=== PATIENT | female | born 1955 | race Caucasian/White ===

== ENCOUNTER 2016-09-04 10:32 | Emergency (ER) | payer OTHER ==
[2016-09-04] MEDS ORDERED: LORazepam TAB(*) 1 MG PO ONE (12:23)
[2016-09-04 12:40] LABS: Hematocrit 42 % (35-47); Hemoglobin 14.3 g/dl (12.0-16.0); Mean Corpuscular HGB Conc 34 g/dl (31-36); Mean Corpuscular Hemoglobin 36 pg (27-31); Mean Corpuscular Volume 106 fL (80-97); Mean Platelet Volume 9 um3 (7.4-10.4); Red Blood Count 4.01 10^6/ul (4.0-5.4); Red Cell Distribution Width 14 % (10.5-15); White Blood Count 6.3 10^3/ul (3.5-10.8)
[2016-09-04 12:48] LABS: Comments Flag Yes
[2016-09-04 12:49] LABS: Add Diff/Slide Review? Slide Review Added
[2016-09-04 12:50] LABS: ALT 90 U/L (7-52); AST 178 U/L (13-39); Albumin 4.2 g/dL (3.2-5.2); Alkaline Phosphatase 126 U/L (34-104); Anion Gap 15 mmol/L (2-11); BUN/Creatinine Ratio 7.9 (8-20); Blood Urea Nitrogen 5 mg/dL (6-24); CO2 Carbon Dioxide 18 mmol/L (22-32); Calcium 9.5 mg/dL (8.6-10.3); Chloride 99 mmol/L (101-111); EGFR African American 124.4 (>60); EGFR Non-African American 96.7 (>60); Globulin 3.2 g/dL (2-4); Glucose 122 mg/dL (70-100); Potassium 3.8 mmol/L (3.5-5.0); Sodium 132 mmol/L (133-145); Total Protein 7.4 g/dL (6.4-8.9)
[2016-09-04 13:20] LABS: Acetaminophen < 15 mcg/mL; Alcohol 55 mg/dL (<10); Salicylate < 2.50 mg/dL (<30)
[2016-09-04 13:26] LABS: TSH (Thyroid Stimulating Horm) 1.73 mcIU/mL (0.34-5.60)
[2016-09-04 13:49] VITALS: BP 139/76
--- NOTE | 2016-09-05 09:02 | ED ---
Hugh June Alfonso, scribed for Brennen Orozco MD on 09/04/16 at 1225 . Substance Abuse/Use - HPI Summary HPI Summary: This patient is a 61 year old F presenting to [facility] accompanied by with a chief complaint of lorazepam withdrawal since two days ago. She states I need some lorazepam I have been taking it for 14 year and it ran out and TID is not sufficient so I have been taking more and ran out. Pt rates the pain 10 /10 in severity. Symptoms aggravated by medication non-compliance and alleviated by nothing. Pt reports anxiety and dizziness. Pt reports daily ETOH abuse. - History Of Current Complaint Chief Complaint: EDDetoxRequest Stated Complaint: OUT OF MEDS, WITHDRAWAL Time Seen by Provider: 09/04/16 11:51 Hx Obtained From: Patient Onset/Duration of Drug/ETOH Abuse: Years - 14 Ingestion History: Type/Name Of Drug - lorazepam Timing Of Abuse: Recent Cessation For A Period Of - 2 days Character: Anxious Aggravating Factor(s): Medication Non-compliance Alleviating Factor(s): Nothing Associated Signs And Symptoms: Other: - Dizzy - Allergies/Home Medications Allergies/Adverse Reactions: Allergies Allergy/AdvReac Type Severity Reaction Status Date / Time Amoxicillin [From Augmentin] Allergy Vomiting Verified 10/10/14 07:32 Ciprofloxacin [From Cipro] Allergy DIFFICULTY Verified 10/10/14 07:32 MOVING FOR ABOUT 2 MONTHS Clavulanic Acid Allergy Vomiting Verified 10/03/14 12:48 [From Augmentin] Levofloxacin [From Levaquin] Allergy Nausea And Verified 10/03/14 12:48 Vomiting Lidocaine Allergy See Comment Verified 10/03/14 12:48 "FLUORO" MEDICATIONS Allergy Unknown Uncoded 10/03/14 12:48 Reaction Details ANTICAKING AGENT Allergy Diarrhea Uncoded 10/03/14 12:48 ENVIRONMENTAL Allergy Unknown Uncoded 10/03/14 12:48 Reaction Details MOLD Allergy DIFFICULTY Uncoded 09/26/14 15:38 MOVING ABOUT 2 MONTHS PMH/Surg Hx/FS Hx/Imm Hx Cardiovascular History: Reports: Hx Valvular Heart Disease - MVP Denies: Hx Pacemaker/ICD Comment Only: Hx Angina - OCCASIONAL CHEST PRESSURE- WITH EXERTION- DR. ORELLANA is aware Respiratory History: Reports: Hx Asthma - HX OF- PRN INHALER, Other Respiratory Problems/Disorders - PLEURACY AT AGE 20 GI History: Reports: Hx Irritable Bowel Musculoskeletal History: Reports: Hx Arthritis Sensory History: Reports: Hx Cataracts - BILATERAL, Hx Contacts or Glasses - GLASSES Denies: Hx Hearing Aid Opthamlomology History: Reports: Hx Cataracts - BILATERAL, Hx Contacts or Glasses - GLASSES Psychiatric History: Reports: Hx Anxiety - ANXIETY -ON MEDICATION FOR Denies: Hx Panic Disorder - Surgical History Surgery Procedure, Year, and Place: 1977- LEFT SALPINGO OOPHORECTOMY;. BILATERAL CATARACTS ;. COLONOSCOPY; Hx Anesthesia Reactions: Yes - SEE NOTE IN MISCELLANEOUS PROBLEM COMMENT Infectious Disease History: No Infectious Disease History: Denies: Traveled Outside the [place] in Last 30 Days - Family History Known Family History: Positive: Hypertension, Other - Cancer - Social History Alcohol Use: Daily Alcohol Amount: 2 DRINKS DAILY Substance Use Type: Reports: Other Substance Use Comment - Amount & Last Used: Lorazepam, last used 2 days ago Smoking Status (MU): Heavy Every Day Tobacco Smoker Amount Used/How Often: 25 CIGARETTES PER DAY X 42 YEARS AGO Have You Smoked in the Last Year: Yes Review of Systems Negative: Fever Neurological: Other - Positive dizziness and lorazepam withdrawal Positive: Anxious All Other Systems Reviewed And Are Negative: Yes Physical Exam - Summary Physical Exam Summary: VITAL SIGNS: Reviewed. GENERAL: Patient is a well-developed, nourished, and anxious female who is lying comfortable in the stretcher. Patient is not in any acute respiratory distress. HEAD AND FACE: Normocephalic EYES: PERRLA, EOMI x 2. EARS: Hearing grossly intact. MOUTH: Oropharynx within normal limits. NECK: Supple, trachea is midline, no adenopathy, no JVD, no carotid bruit. CHEST: Symmetric, no tenderness at palpation LUNGS: Clear to auscultation bilaterally. No wheezing or crackles. CVS: Regular rate and rhythm, S1 and S2 present, no murmurs or gallops appreciated. ABDOMEN: Soft, non-tender. Bowel sounds are normal. No abdominal abnormal pulsations. EXTREMITIES: Full ROM in all major joints, no edema, no cyanosis or clubbing. NEURO: Alert and oriented x 3. No acute neurological deficits. Speech is normal and follows commands. SKIN: Dry and warm Triage Information Reviewed: Yes Vital Signs On Initial Exam: Initial Vitals Temp Pulse Resp BP Pulse Ox 98.1 F 125 26 130/87 100 09/04/16 10:52 09/04/16 10:52 09/04/16 10:52 09/04/16 10:52 09/04/16 10:52 Vital Signs Reviewed: Yes - [place] Coma Scale Coma Scale Total: 15 Diagnostics - Vital Signs Vital Signs Temp Pulse Resp BP Pulse Ox 09/04/16 11:24 98.4 F 104 23 140/85 100 09/04/16 10:52 98.1 F 125 26 130/87 100 - Laboratory Result Diagrams: 09/04/16 12:19 09/04/16 12:19 Lab Statement: Any lab studies that have been ordered have been reviewed, and results considered in the medical decision making process. Course/Dx - Course Course Of Treatment: This patient is a 61 year old F presenting to [facility] accompanied by with a chief complaint of lorazepam withdrawal since two days ago. She states I need some lorazepam I have been taking it for 14 year and it ran out and TID is not sufficient so I have been taking more and ran out. Pt rates the pain 10/10 in severity. Symptoms aggravated by medication non -compliance and alleviated by nothing. Pt reports anxiety and dizziness. Pt reports daily ETOH abuse. Assessment/Plan: Test results within normal limits expect for platelet count of 115, sodium of 132 and glucose of 122. Increased LFTs consistent with alcoholism. Alcohol level of 55. In the ED course patient given one dose of Ativan. I discussed the case with Dr. Allison (family medicine) when calling the practice of the patient's PCP. She recommended dispensing a 90 tablet. She reports their office providing a prescription on 08/20 that should have lasted for one month. However, the patient is taking too many pills daily, therefore she ran out of the medication. Dr. Allison request for the patient to be discharge with a 6 tablet prescription until their office sees the patient on Thursday at 0900. They will discuss further the need of lorazepam. At this point , I had a long discussion and explanation with the patient about why I cannot prescribe more than 6 tabs. She was not happy. She will be discharged home with significant other and PCP follow up. Pt is hemodynamically stable and A&Ox3 - Diagnoses Provider Diagnoses: Polysubstance abuse - Physician Notifications Discussed Care Of Patient With: Sanna Allison Time Discussed With Above Provider: 12:32 Instructed by Provider To: Other - Consulted Dr. Allison (family medicine) when calling the practice of the patient's PCP. She recommended to dispense Ativan in the ED course and has scheduled the pt for a 899 PCP appointment. Discharge - Discharge Plan Condition: Stable Disposition: HOME Prescriptions: LORazepam TAB(*) [Ativan 0.5 MG TAB (*)] 0.5 mg PO Q8H PRN #6 tab MDD 3 tabs / day PRN Reason: Anxiety Patient Education Materials: Polysubstance Abuse (ED) Referrals: Larry Orellana MD [Primary Care Provider] - 2 Days The documentation as recorded by the Hugh castillo Alfonso accurately reflects the service I personally performed and the decisions made by , Brennen Orozco MD.
== END 2016-09-04 13:48 | disposition home or self-care (01) ==
LOC: ED 10:32
DX: F19.10 Other psychoactive substance abuse, uncomplicated (principal); R42 Dizziness and giddiness
CPT/HCPCS: 36415; 80053; 80320; 80329; 84443; 85025; 99283; A9270-GY; G0480

== ENCOUNTER 2019-02-17 08:11 | Emergency (ER) | payer MEDICARE ==
--- OUTSIDE RECORDS SUMMARY | 2019-02-17 08:18 | XMS REPORT | Continuity of Care Document ---
:1955 External Reference #:[id number] Author Name Tamela Roca M.D. (transmitted by agent of provider Lisset Taylor) Address [address], [place] [address] Care Team Providers Name Role Phone Larry Duran MD - Family Medicine Care Team Information Commercial Electrician [phone] Tamela Roca MD - Neurology Care Team Information Commercial Electrician [phone] Problems Active Problems Provider Date Cerebral atrophy Tamela Roca M.D. Onset: 11/05/2016 Note: history of significant ETOH use Syncope Tamela Roca M.D. Onset: 11/05/2016 Note: in setting decreased PO intake and diarrhea Spinal stenosis in cervical region Kenyetta Maria MD Onset: 04/28/2017 Lumbar spondylolisthesis Kenyetta Maria MD Onset: 04/28/2017 Lumbosacral spondylosis without myelopathy Kenyetta Maria MD Onset: Spondyloliskaylasis Kenyetta Maria MD Onset: 04/28/2017 Social History Type Date Description Comments Sex Unknown ETOH Use Rarely consumes alcohol Last consumed alcohol in August Tobacco Use Start: Unknown Heavy tobacco smoker 1 ppd (more than 10 cigarettes/day) Recreational Drug Use Regularly uses Marijuana daily Smoking Status Reviewed: 01/14/19 Heavy tobacco smoker 1 ppd (more than 10 cigarettes/day) Allergies, Adverse Reactions, Alerts Active Allergies Reaction Severity Comments Date Absorbine Lidocaine stopped breathing 11/05/2016 Cipro "hard to move, for 2 months" 11/05/2016 Levofloxacin nausea, dizziness 11/05/2016 Fluoroquinolones diarrhea, dizziness, nausea 11/05/2016 Beeswax swelling Severe 03/20/2017 Aluminum Sodium Silicate severe GI reaction Severe 03/20/2017 Augmentin 04/28/2017 Medications Active Medications SIG Qnty Indications Ordering Provider Date Silver Hydrosol one spray into Unknown mouth a day Iodine Plus 3 drops daily Unknown Atenolol 1 by mouth Unknown 25mg Tablets every day Buspirone HCL 1 by mouth Unknown 10mg Tablets twice a day Super B-50 Complex Unknown Capsules Glucosamine Sulfate 1 by mouth Unknown 500mg every day Capsules Pseudoephedrine HCL 1 by mouth qd Unknown 30mg Tablets Trace Mineral -B12 1 tab po qd Unknown Tablets Cataplex E2 1 tab po qd Unknown 0.1mg Tablets Aspirin take 1-2 by Unknown 325mg Tablets mouth qd Magnesium 1 by mouth Unknown 400mg Tablets every day CBD Oil daily Unknown Belladonna Extract qd Unknown Powder Arnica every other day Unknown Gel for pain Imodium A-D As needed Unknown 2mg Tablets Ibu-200 One Tab 3-4 Unknown 200mg Tablets Times A Day Vitamin D3 1 tab by mouth Unknown Tab once a day Folic Acid take one tablet Unknown 400mcg Tablets by mouth every day (supplement) Mucinex D 1 tab by mouth Unknown 60-600mg Tablets ER 2x day as 12HR needed Vitamin B-12 ER 1 by mouth Unknown 1000mcg Tablets every day ER Ondansetron 1 tab po as Larry Duran MD 4mg Tablets Dispers needed for nausea Ventolin HFA 1-2 puffs as Larry Duran MD 108(90Base) needed for mcg/Act Aerosol SOB/Wheezing Lorazepam 1 tab po tid Larry Duran MD 0.5mg Tablets Immunizations Description No Information Available Vital Signs Date Vital Result Comment 01/14/2019 9:43am Height 66 inches 5'6" Weight 162.00 lb BMI (Body Mass Index) 26.1 kg/m2 12/31/2018 10:32am Height 66 inches 5'6" Weight 161.00 lb Heart Rate 86 /min BP Systolic 142 mmHg BP Diastolic 78 mmHg BMI (Body Mass Index) 26.0 kg/m2 Results Description No Information Available Procedures Date Code Description Status 06/02/2017 30680440 Mammogram Completed Medical Devices Description No Information Available Encounters Type Date Location Provider Dx Diagnosis Office Visit 01/14/2019 [facility] Tamela Roca M47.12 Other spondylosis with 9:30a [facility] myelopathy, cervical region Office Visit 12/31/2018 [facility] Tamela Roca M48.03 Spinal stenosis, 10:00a [facility] cervicothoracic region R94.02 Abnormal brain scan F41.9 Anxiety disorder, unspecified M54.16 Radiculopathy, lumbar region Assessments Date Code Description Provider 01/14/2019 M47.12 Other spondylosis with myelopathy, cervical Tamela Roca M.D. region 12/31/2018 M48.03 Spinal stenosis, cervicothoracic region Tamela Roca M.D. 12/31/2018 R94.02 Abnormal brain scan Tamela Roca M.D. 12/31/2018 F41.9 Anxiety disorder, unspecified Tamela Roca M.D. 12/31/2018 M54.16 Radiculopathy, lumbar region Tamela Roca M.D. Plan of Treatment 01/14/2019 - Tamela Roca M.D.M47.12 Other spondylosis with myelopathy, cervical regionReferral:Kenyetta Maria MD, Surgery,NeurologicalFollow up :after visit with Neurosurgery.Recommendations:no lifting over 10 lb. no manipulation with chiropractor no falls. Use a railing and keep your vision unblocked when using stairs. No alcohol Highly suggest seeing neurosurgery for further information/ education, and suggest surgical consideration. Functional Status Description No Information Available Mental Status Description No Information Available Referrals Refer to Reason for Referral Status Appt Date Kenyetta Maria MD progressive myelopathy on history, and Created 00/ on MRI, to my review appears to have progression on axial films. [address] [place] [address] [phone]
--- OUTSIDE RECORDS SUMMARY | 2019-02-17 08:18 | XMS REPORT | Continuity of Care Document ---
:1955 External Reference #:[id number] Author Name Kenyetta Maria MD (transmitted by agent of provider Elida Brown ) Address [address] [place] [address] Care Team Providers Name Role Phone Larry Duran MD - Family Medicine Care Team Information Director Of Casino [employer] [phone] Tamela Roca MD - Neurology Care Team Information Director Of [employer] Problems Active Problems Provider Date Cerebral atrophy Tamela Roca M.D. Onset: 11/05/2016 Note: history of significant ETOH use Syncope Tamela Roca M.D. Onset: 11/05/2016 Note: in setting decreased PO intake and diarrhea Spinal stenosis in cervical region Kenyetta Maria MD Onset: 04/28/2017 Lumbar spondylolisthesis Kenyetta Maria MD Onset: 04/28/2017 Lumbosacral spondylosis without myelopathy Kenyetta Maria MD Onset: Spondylolisthesis Kenyetta Maria MD Onset: 04/28/2017 Social History Type Date Description Comments Sex Unknown ETOH Use Rarely consumes alcohol Last consumed alcohol in August Tobacco Use Start: Unknown Heavy tobacco smoker 1 ppd (more than 10 cigarettes/day) Recreational Drug Use Regularly uses Marijuana daily Smoking Status Reviewed: 02/09/19 Heavy tobacco smoker 1 ppd (more than [...] Medications SIG Qnty Indications Ordering Provider Date FELICIA Collar When out of bed M47.12 Vassilios 02/09/2019 MD Candace Silver Hydrosol one spray into Unknown mouth a day Iodine Plus 3 drops daily Unknown Atenolol 1 by mouth Unknown 25mg Tablets every day Buspirone HCL 1 by mouth Unknown 10mg Tablets twice a day Super B-50 Complex every other day Unknown Capsules Glucosamine Sulfate 1 by mouth [...] B-12 ER 1 by mouth Unknown 1000mcg every day Tablets ER Ondansetron 1 tab po as Larry Duran MD 4mg Tablets needed for Dispers nausea Ventolin HFA 1-2 puffs as Larry Duran MD 108(90Base) needed for mcg/Act Aerosol SOB/Wheezing Lorazepam 1 tab po tid Larry Duran MD 0.5mg Tablets Immunizations Description No Information Available Vital Signs Date Vital Result Comment 02/09/2019 2:36pm Height 66 inches 5'6" Weight 163.00 lb Heart Rate 88 /min BP Systolic Sitting 124 mmHg Lue BP Diastolic Sitting 74 mmHg Lue Respiratory Rate 18 /min BMI (Body Mass Index) 26.3 kg/m2 01/14/2019 9:43am Height 66 inches 5'6" Weight 162.00 lb BMI (Body Mass Index) 26.1 kg/m2 Results Description No Information Available Procedures Date Code Description Status 06/02/2017 [id number] Mammogram Completed Medical Devices Description No Information Available Encounters Type Date Location Provider Dx Diagnosis Office Visit 01/14/2019 [facility] Tamela Roca M47.12 Other spondylosis with 9:30a [facility] myelopathy, cervical region Office Visit 12/31/2018 [facility] Tamela Roca M48.03 Spinal stenosis, 10:00a [facility] cervicothoracic region R94.02 Abnormal brain scan F41.9 Anxiety disorder, unspecified M54.16 Radiculopathy, lumbar region Assessments Date Code Description Provider 02/09/2019 M47.12 Other spondylosis with myelopathy, Kenyetta Maria MD cervical region 02/09/2019 M48.03 Spinal stenosis, cervicothoracic region Kenyetta Maria MD 01/14/2019 M47.12 Other spondylosis with myelopathy, Tamela Roca M.D. cervical region 12/31/2018 M48.03 Spinal stenosis, cervicothoracic region Tamela Roca M.D. 12/31/2018 R94.02 Abnormal brain scan Tamela Roca M.D. 12/31/2018 F41.9 Anxiety disorder, unspecified Tamela Roca M.D. 12/31/2018 M54.16 Radiculopathy, lumbar region Tamela Roca M.D. Plan of Treatment Future Appointment(s):04/20/2019 1:30 pm - Kenyetta Maria MD at [facility]02/09/2019 - DESTINI Zamudio47.12 Other spondylosis with myelopathy, cervical regionNew Medication:MJ Collar - When out of bedFollow up:RV in 2 months.M48.03 Spinal stenosis, cervicothoracic region Functional Status Description No Information Available Mental Status Description No Information Available Referrals Refer to Reason for Referral Status Appt Date Kenyetta Maria MD progressive myelopathy on history, and on Sent MRI, to my review appears to have progression on axial films. [address] [place] [address] [phone]
--- OUTSIDE RECORDS SUMMARY | 2019-02-17 08:18 | XMS REPORT | Summary of Care ---
:1955 Author Organization [facility] Address [address] [place] [address] Care Team Providers Name Role Phone Larry Duran Primary Care Provider Reason for Referral MRI/CAT/PET Scan (Routine) Status Reason Specialty Diagnoses / Referred By Referred To Procedures Contact Contact Authorized Diagnoses Personal history of nicotine dependence Larry Duran MD Procedures CT CHEST LUNG SCREENING [address] [id number] Reason for Visit Reason Comments Follow Up pt presents for follow up Encounter Details Date Type Department Care Team Description 01/13/2019 Office Visit [facility] Larry Duran MD Cervical myelopathy (HCC) (Primary Dx); Practice [address] [facility] Personal history of nicotine dependence; [address] [place] [address] Hyponatremia; [place] [address] Depression with anxiety; [phone] Alcohol withdrawal, uncomplicated (HCC); (Fax) Seasonal allergies Allergies Active Allergy Reactions Severity Noted Date Comments Augmentin GI Reaction 07/23/2012 Beeswax Lip Patterson Swelling 02/03/2017 Ciprofloxacin Hcl Unknown Reaction 07/30/2011 Lidocaine Hcl Unknown Reaction 07/30/2011 Mold Unknown Reaction 07/30/2011 documented as of this encounter (statuses as of 01/13/2019) Medications Medication Sig Dispensed Refills Start End Date Status Date Loperamide HCl Take by 0 Active (IMODIUM A-D PO) mouth. Cholecalciferol Take by 0 Active (VITAMIN D-3 PO) mouth. cyanocobalamin Take 1,000 mcg 0 Active (VITAMIN B12) 1000 by mouth. MCG Oral Tab ibuprofen (MOTRIN) Take 200 mg by 0 Active 200 MG Oral Tab mouth EVERY SIX HOURS NEEDED for Pain (1-2 times a day as needed). fluocinonide (LIDEX) 0.5 g by 30 g 0 Active 0.05 % Apply Topical route 7 externally Cream TWICE DAILY. triamcinolone 1 Appl by 15 g 0 Active (KENALOG,ARISTOCORT) Topical route 8 0.025 % Apply TWICE DAILY. externally Cream mupirocin 15 g by 30 g 0 Active (BACTROBAN) 2 % Topical route 8 Apply externally THREE TIMES Cream DAILY. Homeopathic Products by Apply 0 Active (ARNICARE ARNICA) externally Apply externally route. Ointment aspirin 325 MG Oral Take 325 mg by 0 Active Tab mouth DAILY. TRACE MINERALS Take by 0 Active CACUFEIKMGMNPZN PO mouth. busPIRone (BUSPAR) 5 Take 1 Tab by 90 Tab 1 Active MG Oral Tab mouth THREE 9 TIMES DAILY. atenolol (TENORMIN) Take 1 Tab by 30 Tab 2 Active 25 MG Oral Tab mouth DAILY. 9 LORazepam (ATIVAN) Take 1 Tab by 120 Tab 0 Active 0.5 MG Oral Tab mouth EVERY 9 SIX HOURS NEEDED (anxiety). Max Daily Amount: 2 mg. MAGNESIUM LACTATE PO Take 3 Caps by 0 Active mouth DAILY. Iodine Strong, Take 3 Drops 0 Active Lugols, (IODINE by mouth STRONG PO) DAILY. guaifenesin Take 10 mL by 473 mL 5 Active (GUIATUSS) 100 mouth DAILY. 9 MG/5ML Oral Syrup ondansetron (ZOFRAN Take 1 Tab by 30 Tab 2 Active ODT) 4 MG Oral mouth DAILY 9 TABLET DISPERSIBLE NEEDED (nausea). VENTOLIN HFA 108 (90 Take 2 Puffs 36 g 1 Active Base) MCG/ACT by inhalation 9 Inhalation Aero Soln EVERY FOUR HOURS NEEDED (COPD). benzonatate Take 1 Cap by 42 Cap 0 Active (TESSALON PERLES) mouth THREE 9 100 MG Oral Cap TIMES DAILY. Multiple Take by 0 01/14/20 Discontinued Vitamins-Minerals mouth. 19 (MULTIVITAMIN ADULT PO) loratadine Take 1 Tab by 30 Tab 5 01/14/20 Discontinued (CLARITIN,ALAVERT) mouth DAILY. 7 19 10 MG Oral Tab Cypress 3-6-9 Fatty Take 1 Cap by 0 01/14/20 Discontinued Acids (OMEGA-3 & mouth EVERY 19 OMEGA-6 FISH OIL) OTHER DAY. Oral Cap Magnesium 400 MG Take by 0 01/14/20 Discontinued Oral Cap mouth. 19 Rhodiola rosea Take by 0 01/14/20 Discontinued (RHODIOLA PO) mouth. 19 busPIRone (BUSPAR) Take 1 Tab by 60 Tab 2 01/14/20 Discontinued 10 MG Oral Tab mouth TWICE 9 19 DAILY. VENTOLIN HFA 108 (90 Take 2 Puffs 36 g 1 01/14/20 Discontinued Base) MCG/ACT by inhalation 9 (Reorder) Inhalation Aero Soln EVERY FOUR HOURS NEEDED (COPD). ondansetron (ZOFRAN Take 1 Tab by 24 Tab 0 01/14/20 Discontinued ODT) 4 MG Oral mouth FOUR 9 (Reorder) TABLET DISPERSIBLE TIMES DAILY NEEDED (nausea). documented as of this encounter (statuses as of 01/13/2019) Active Problems Problem Noted Date Alcohol withdrawal, uncomplicated 12/03/2017 Tear of lateral cartilage or meniscus of knee, current 08/08/2016 Left knee pain 05/08/2016 Benign hypertension 09/25/2015 Microscopic colitis 03/03/2012 Depression with anxiety 02/10/2012 Vitamin D deficiency 07/30/2011 Seasonal allergies 07/30/2011 Mitral regurgitation 07/30/2011 Hemorrhoids 07/30/2011 Tobacco user documented as of this encounter (statuses as of 01/13/2019) Resolved Problems Problem Noted Date Resolved Date Seizure 12/03/2017 05/20/2018 Alcohol abuse 09/06/2016 12/06/2017 Gastritis 07/31/2011 09/06/2016 Pneumonia 07/30/2011 01/13/2012 Diarrhea 07/30/2011 09/06/2016 ADD (attention deficit disorder) 07/30/2011 01/13/2012 Osteoarthritis of shoulder 07/30/2011 01/13/2012 Arthritis 07/30/2011 09/06/2016 Pulmonary disease 07/30/2011 09/06/2016 Diverticulosis 07/30/2011 09/06/2016 Murmur 07/30/2011 01/13/2012 documented as of this encounter (statuses as of 01/13/2019) Immunizations Name Administration Dates Next Due Influenza (IM) Preservative Free 12/31/2018, 12/03/2017, 01/09/2017, 12/12/2015, 01/02/2014, 12/06/2012 PNEUMOCOCCAL POLYSACCHARIDE VACCINE 01/09/2017 TDAP Vaccine 12/03/2017 documented as of this encounter Social History Tobacco Use Types Packs/Day Years Used Date Current Every Day Smoker Cigarettes 1.5 44 Smokeless Tobacco: Never Used Tobacco Cessation: Ready to Quit: No; Counseling Given: Yes Alcohol Use Drinks/Week oz/Week Comments No 42 Cans of beer 42.0 sober August Standard drinks or equivalent Sex Assigned at Date Recorded Not on file Job Start Date Occupation Industry Not on file Not on file Not on file Travel History Travel Start Travel End No recent travel history available. documented as of this encounter Last Filed Vital Signs Vital Sign Reading Time Taken Comments Blood Pressure 138/82 01/13/2019 1:35 PM EST Pulse 90 01/13/2019 1:35 PM EST Temperature - - Respiratory Rate - - Oxygen Saturation 99% 01/13/2019 1:35 PM EST Inhaled Oxygen Concentration - - Weight 73.5 kg (162 lb) 01/13/2019 1:35 PM EST Height 171.5 cm (5' 7.5") 01/13/2019 1:35 PM EST Body Mass Index 25 01/13/2019 1:35 PM EST documented in this encounter Progress Notes Larry Duran MD - 01/13/2019 1:20 PM EST PATIENT: Esther Hoffmann : 1955 DATE OF SERVICE: 01/13/2019 CHIEF COMPLAINT: Chief Complaint Patient presents with Follow Up pt presents for follow up Subjective HISTORY OF PRESENT ILLNESS: Esther Hoffmann is a 63-y.o. female. Patient with severe anxiety. Manipulated herself into raising the ativan to 4 a day by using more than 3 a day and said running out and needed refill. She tells me she uses 3-4 a day now but I stop not due till end of December but she asking for refill now?. Saumya tried to get her on ssri but she declined. ariel tried buspar but she not consistent taking it. Also tried beta kate. Not sure about gabapentin and atarax. She had repeat mri of c spine. She has a known myelopathy but refused surgery. She has appointment with Dr Roca tomorrow. She says if she moves her neck some LE symptoms go away but some like numbness bottom of feet are constant In addition to the cervical stenosis and a neuropathy she has brain atrophy She rides exercise bike 5 min 3 x a day Also using stretch bands Her uses sudafed in AM due to AM congestion She prefers mucinex liquid She not like antihistamine or steroid nasal spray She would like tessalon Uses albuterol 2 x a week , not other meds Regarding screening for lung cancer screening: Esther Hoffmann is a 63-y.o. old female considering lung cancer screening. The patient is a current smoker. She has had a prior CT scan on . She reports that she has been smoking cigarettes. She has a 66.00 pack-year smoking history. She has never used smokeless tobacco. She denies symptoms of lung cancer. Shared decision making was performed. https://effectivehealthcare.ahrq.gov/decision-aids/mdzo-gyvxby-ewldowmbf/ decisionmaking-tool.html Together we reviewed the benefits of lung cancer screening using an [facility] authored decision supporttool. I discussed the risks of CT screening including false positive results and radiation exposure Assessment/Plan: Esther Hoffmann has expressed interest the Lung Screening Program. Low-dose non- contrast CT screeningof persons deemed at high risk for lung cancer has been shown to reduce lung cancer mortality by 20%compared with chest x-ray screening. Based on her history of smoking > 30 pack years and being a current smoker, she meets eligibilitycriteria. The patient verbally confirmed understanding of this information and accepted to proceed. I have placed orders for low dose CT imaging The patient was counseled on smoking cessation. [id number] Past Medical History: Diagnosis Date Anxiety Diarrhea chronic Diverticulosis Gastritis EGD Hemorrhoids Hormones and synthetic substitutes causing adverse effect in therapeutic use Lymphocytic colitis 2012 c scope Personal history of contraception, presenting hazards to health Pneumonia Postmenopausal , first Tobacco user Vitamin D deficiency Family History Problem Relation Age of Onset Breast Cancer Maternal Aunt Breast Cancer Maternal Grandmother Breast Cancer Unknown grand mother Hypertension Mother Brother Alcohol/Drug Father Current Outpatient Medications Medication Sig aspirin 325 MG Oral Tab Take 325 mg by mouth DAILY. atenolol (TENORMIN) 25 MG Oral Tab Take 1 Tab by mouth DAILY. busPIRone (BUSPAR) 5 MG Oral Tab Take 1 Tab by mouth THREE TIMES DAILY. Cholecalciferol (VITAMIN D-3 PO) Take by mouth. cyanocobalamin (VITAMIN B12) 1000 MCG Oral Tab Take 1,000 mcg by mouth. fluocinonide (LIDEX) 0.05 % Apply externally Cream 0.5 g by Topical route TWICE DAILY. guaifenesin (GUIATUSS) 100 MG/5ML Oral Syrup Take 10 mL by mouth DAILY. Homeopathic Products (ARNICARE ARNICA) Apply externally Ointment by Apply externally route. ibuprofen (MOTRIN) 200 MG Oral Tab Take 200 mg by mouth EVERY SIX HOURS NEEDED for Pain (1-2 times a day as needed). Iodine Strong, Lugols, (IODINE STRONG PO) Take 3 Drops by mouth DAILY. Loperamide HCl (IMODIUM A-D PO) Take by mouth. LORazepam (ATIVAN) 0.5 MG Oral Tab Take 1 Tab by mouth EVERY SIX HOURS NEEDED (anxiety). Max Daily Amount: 2 mg. MAGNESIUM LACTATE PO Take 3 Caps by mouth DAILY. mupirocin (BACTROBAN) 2 % Apply externally Cream 15 g by Topical route THREE TIMES DAILY. ondansetron (ZOFRAN ODT) 4 MG Oral TABLET DISPERSIBLE Take 1 Tab by mouth DAILY NEEDED (nausea). TRACE MINERALS CACUFEIKMGMNPZN PO Take by mouth. triamcinolone (KENALOG,ARISTOCORT) 0.025 % Apply externally Cream 1 Appl by Topical route TWICE DAILY. VENTOLIN HFA 108 (90 Base) MCG/ACT Inhalation Aero Soln Take 2 Puffs by inhalation EVERY FOUR HOURS NEEDED (COPD). No current facility-administered medications for this visit. Allergies Allergen Reactions Augmentin GI Reaction Beeswax Lip Patterson Swelling Ciprofloxacin Hcl Unknown Reaction Lidocaine Hcl Unknown Reaction Mold Unknown Reaction Social History Socioeconomic History Marital status: Spouse name: Not on file Number of children: Not on file Years of education: Not on file Highest education level: Not on file Occupational History Not on file Social Needs Financial resource strain: Not on file Food insecurity: Worry: Not on file Inability: Not on file Transportation needs: Medical: Not on file Non-medical: Not on file Tobacco Use Smoking status: Current Every Day Smoker Packs/day: 1.50 Years: 44.00 Pack years: 66.00 Types: Cigarettes Smokeless tobacco: Never Used Substance and Sexual Activity Alcohol use: No Alcohol/week: 42.0 standard drinks Types: 42 Cans of beer per week Comment: sober August Drug use: Not on file Sexual activity: Not on file Lifestyle Physical activity: Days per week: Not on file Minutes per session: Not on file Stress: Not on file Relationships Social connections: Talks on phone: Not on file Gets together: Not on file Attends druze service: Not on file Active member of club or organization: Not on file Attends meetings of clubs or organizations: Not on file Relationship status: Not on file Intimate partner violence: Fear of current or ex partner: Not on file Emotionally abused: Not on file Physically abused: Not on file Forced sexual activity: Not on file Other Topics Concern Back Care Not Asked Bike Helmet Not Asked Blood Transfusions Not Asked Caffeine Concern Not Asked Exercise Not Asked Hobby Hazards Not Asked International Travel Not Asked Service Not Asked Occupational Exposure Not Asked Seat Belt Not Asked Self-Exams Not Asked Sleep Concern Not Asked Special Diet Not Asked Stress Concern Not Asked Weight Concern Not Asked Social History Narrative Not on file REVIEW OF SYSTEMS: Review of Systems Skin: Flaky skin side of cheeks as well as over eyebrow. Objective PHYSICAL EXAM: VITALS: BP 138/82 (BP Location: Left arm, Patient Position: Sitting) | Pulse 90 | Ht 5' 7.5" (1.715 m) | Wt 162 lb (73.5 kg) | SpO2 99% | BMI 25.00 kg/m Body mass index is 25 kg/m. Physical Exam Vitals signs reviewed. Constitutional: Appearance: She is not ill-appearing (looks sober). HENT: Mouth/Throat: Pharynx: Oropharynx is clear. Cardiovascular: Rate and Rhythm: Normal rate and regular rhythm. Pulmonary: Effort: Pulmonary effort is normal. No respiratory distress. Skin: Comments: Red scale over left eye brow Psychiatric: Comments: Dress and hygiene good Good eye contact Thoughts and speech normal memory seems fair Affect Appropriate Mood normal ASSESSMENT / IMPRESSION: ICD-9-CM ICD-10-CM 1. Cervical myelopathy (HCC)will see what Dr Lindsey has to say 721.1 G95.9 2. Personal history of nicotine dependence ok to get CT screen Z87.[address] CHEST LUNG SCREENING 3. Hyponatremia last year Not followed that I see 276.1 E87.1 BASIC METABOLIC PANEL 4. Depression with anxiety push the buspar not ativan . Think about atarax and neurontin 300.4 F41.8 5. Alcohol withdrawal, uncomplicated (HCC) not smell of tobacco today 291.81 F10.230 6. Seasonal allergieswrote for rubitussin and tessalon. Recommend she try nasal steroid 477.9 J30.2 Plan Author: Larry Duran MD 01/13/2019 22:03 documented in this encounter Plan of Treatment Name Type Priority Associated Diagnoses Order Schedule CT CHEST LUNG Imaging Routine Personal history of Expected: 01/13/2019, SCREENING nicotine dependence Expires: 01/13/2020 OSMOLALITY, SERUM Lab Routine Hyponatremia Ordered: 01/13/2019 Health Maintenance Due Date Last Done Comments MEDICARE ANNUAL WELLNESS 1955 VISIT ZOSTER IMMUNIZATION SERIES 2007 (1 of 2) MAMMOGRAM (SCREENING) 05/19/2017 05/19/2016, 05/19/2016, 05/19/2016, Additional history exists LUNG CANCER SCREENING 06/02/2018 06/02/2017 DEPRESSION SCREENING 02/15/2019 02/15/2018, 02/03/2017 PAP SMEAR 03/04/2019 03/04/2016 (Previously completed) DIABETES SCREENING 01/14/2020 01/13/2019, 02/15/2018, 09/08/2016, Additional history exists Colonoscopy 08/06/2021 08/07/2011 PNEUMOCOCCAL 0-64 YRS Completed 01/09/2017 INFLUENZA VACCINE Completed 12/31/2018, 12/03/2017, 01/09/2017, Additional history exists HPV IMMUNIZATION SERIES Aged Out No longer eligible based on patient's age to complete this topic MENINGOCOCCAL VACCINE IMM Aged Out No longer eligible based on patient's age to complete this topic documented as of this encounter Goals Goal Patient Goal Associated Recent Patient-Stated? Author Type Problems Progress Blood Pressure Blood Pressure 138/82 No Roger, < 140/90 (01/13/2019 MD Larry 1:35 PM EST) Note: This is an individualized treatment (blood pressure) goal for Esther Hoffmann: Displayed above (on the left) is your goal for blood pressure control. Your most recent blood pressure is also shown above, on the right. You should try to achieve blood pressures that are lower than your goal listed above (on the left). Depression screen (PHQ-9) Depression 16 (02/03/2017 2:39 PM Larry Rubin MD total score < 5 EST) Note: This is an individualized treatment (depression) goal for Esther Hoffmann: Displayed above is your goal for a depression screening (PHQ-9) score that would indicate good control of your depression. Lifestyle - Current Smoker Lifestyle No Larry Duran MD Note: 1. Set a quit date 2. Use of medications-talk with doctor about current medications for nicotine replacement (patch, gum, lozenges, varenicline, buprupion) 3. Gradually reduce the number of cigarettes daily. This will help to eventually stop. 4. Connect to behavior counseling-[facility] Quit lines (SU-[phone] or [facility]- [phone]), stop smoking groups-[facility] or Keep a regular sleep schedule Lifestyle No Larry Duran MD Note: This is an individualized lifestyle goal for Esther Hoffmann: Please maintain a regular sleep schedule. This may help with some symptoms of depression. Take all prescribed medications as directed Self-management No Larry Duran MD Note: This is an individualized self-management goal for Esther Hoffmann: Please take all prescribed medications as directed. 1. Do not skip doses. If you cannot afford your medications, talk with your doctor. 2. Use a pill reminder system such as a pill box if needed. Your pharmacist can help you with this. 3. Contact your Pharmacy 5 days before your medication runs out. If you cannot take your medications for any reasons, talk with your doctor. 4. Please bring all of your medication bottles and inhalers (or a list of all your medications/inhalers) with you to every visit. Potential barriers to meeting all of your care plan goals will continue to be addressed on an ongoing basis. documented as of this encounter Procedures Procedure Name Priority Date/Time Associated Diagnosis Comments BASIC METABOLIC Routine 01/13/2019 3:30 Hyponatremia Results for this PANEL PM EST procedure are in the results section. documented in this encounter Results BASIC METABOLIC PANEL (01/13/2019 3:30 PM EST) Glucose 94 70 - 99 mg/dl [facility] BUN 4 (L) 7 - 17 mg/dl [facility] Creatinine 0.5 (L) 0.7 - 1.2 mg/dl [facility] Sodium 123 (L) 134 - 145 mmol/L [facility] Potassium 4.7 3.5 - 5.1 mmol/L [facility] Chloride 91 (L) 98 - 107 mmol/L [facility] CO2 20 (L) 22 - 30 mmol/L [facility] Calcium 9.7 8.3 - 10.1 mg/dl [facility] eGFR >60 See Interpretation [facility] Comment: Below ml/min/1.73ml GROUP Estimated GFR Interpretation: Sq LABORATORY Above 60ml/min/1.73m2 = Normal Renal Function 30-59 ml/min/1.73m2 = Stage 3 Chronic Kidney Disease 15-29 ml/min/1.73m2 = Stage 4 Chronic Kidney Disease Less than 15 ml/min/1.73m2 = Stage 5 Chronic Kidney Disease The GFR value is calculated using the Modification of Diet in Renal Disease ( MDRD) Study Equation which can be found at: https://www.kidney.org/content/xqgq-nyjny-xgspsero BUN/Creatinine 8 6 - 22 RAT[facility] LABORATORY Anion Gap 12 (H) 3 - 11 mmol/L [facility] Specimen Blood - Blood specimen (specimen) Performing Organization Address City/State/Zipcode Phone Number [facility] [address] [place] [address] documented in this encounter Visit Diagnoses Diagnosis Cervical myelopathy (HCC) - Primary Cervical spondylosis with myelopathy Personal history of nicotine dependence Hyponatremia Hyposmolality and/or hyponatremia Depression with anxiety Dysthymic disorder Alcohol withdrawal, uncomplicated (HCC) Seasonal allergies Allergic rhinitis, cause unspecified documented in this encounter
--- OUTSIDE RECORDS SUMMARY | 2019-02-17 08:18 | XMS REPORT | Continuity of Care Document ---
:1955 External Reference #:[id number] Author Name Tamela Roca M.D. (transmitted by agent of provider Lisset Taylor) Address [address], [place] [address] Care Team Providers Name Role Phone Larry Duran MD - Family Medicine Care Team Information Policy Issue Clerk [phone] Tamela Roca MD - Neurology Care Team Information Policy Issue Clerk Problems Active Problems Provider Date Cerebral atrophy [...] Regularly uses Marijuana daily Smoking Status Reviewed: 12/31/18 Heavy tobacco smoker 1 ppd (more than [...] Available Vital Signs Date Vital Result Comment 12/31/2018 10:32am Height 66 inches 5'6" Weight 161.00 lb Heart Rate 86 /min BP Systolic 142 mmHg BP Diastolic 78 mmHg BMI (Body Mass Index) 26.0 kg/m2 06/25/2018 10:09am Height 66 inches 5'6" Weight 166.12 lb Heart Rate 72 /min BP Systolic Sitting 142 mmHg BP Diastolic Sitting 74 mmHg Respiratory Rate 18 /min BMI (Body Mass Index) 26.8 kg/m2 Results Description No Information Available Procedures Date Code Description Status 06/02/2017 [id number] Mammogram Completed Medical Devices Description No Information Available Encounters Description No Information Available Assessments Date Code Description Provider 12/31/2018 M48.03 Spinal stenosis, cervicothoracic region Tamela Roca M.D. 12/31/2018 R94.02 Abnormal brain scan Tamela Roca M.D. 12/31/2018 F41.9 Anxiety disorder, unspecified Tamela Roca M.D. 12/31/2018 M54.16 Radiculopathy, lumbar region Tamela Roca M.D. Plan of Treatment Future Appointment(s):01/14/2019 9:30 am - Tamela Roca M.D. at [facility]12/31/2018 - Tamela Roca M.D.M48.03 Spinal stenosis , cervicothoracic regionNew Xrays:MRI Cervical Spine Wo, Ordered: Follow up:Please get primary doctor's note from last year Add on for follow up after MRIR94.02 Abnormal brain scanF41.9 Anxiety disorder, unspecifiedRecommendations:take buspirone [id number] Radiculopathy, lumbar region Functional Status Description No Information Available Mental Status Description No Information Available Referrals Description No Information Available
[2019-02-17 08:26] VITALS: BP 135/86
--- NOTE | 2019-02-17 08:30 | UC ---
Shoulder Pain HPI - HPI Summary HPI Summary: 63 yo female presents, accompanied by daughter, with RIGHT shoulder pain. Pt tells me that yesterday she slipped on the ice and fell onto her right shoulder , right hip, and hit her head on the ground. No LOC. She was able to get to her feet and drive to her daughter's house, but had severe pain in right shoulder. Since that time has had right shoulder pain with any movement. Has been using a make-shift sling for comfort and taking motrin with good relief. Denies numbness or tingling. No headache, dizziness, vision changes, n/v. - History of Current Complaint Chief Complaint: UCUpperExtremity Stated Complaint: SHOULDER INJURY Time Seen by Provider: 02/17/19 08:29 Hx Obtained From: Patient Severity Initially: Moderate Severity Currently: Moderate Pain Intensity: 6 Pain Scale Used: 0-10 Numeric - Allergies/Home Medications Allergies/Adverse Reactions: Allergies Allergy/AdvReac Type Severity Reaction Status Date / Time amoxicillin Allergy Altered Verified 02/17/19 08:27 Mental Status/VOMITTING ciprofloxacin Allergy DIFFICULTY Verified 02/17/19 08:27 MOVING FOR 2 MONTHS/MOLD EXPOSURE SAME TIME clavulanic acid Allergy Altered Verified 02/17/19 08:27 [From Augmentin] Mental Status/VOMITTING levofloxacin Allergy Nausea And Verified 02/17/19 08:27 Vomiting/DIZZY lidocaine Allergy STOPPED Verified 02/17/19 08:27 BREATHING/HEART STOPPED mold Allergy DIFFICULTY Verified 02/17/19 08:27 MOVING FOR 2 MONTHS ANTICAKING AGENT Allergy Mild IN FOOD Uncoded 02/17/19 08:27 THE ANTICAKING AGENT GIVES PT GI PROBLEMS ENVIRONMENTAL Allergy BREATHING Uncoded 02/17/19 08:27 RUNNY NOSE FLOURO MEDICATIONS Allergy ANTIBIOTICS/NAUSEA Uncoded 02/17/19 08:27 AND VOMITTING Home Medications: Home Medications Arnica Flower Extract [Arnica Lg] 02/17/19 [History] Aspirin EC TAB* [Ecotrin EC TAB*] 325 mg PO DAILY 02/17/19 [History Confirmed ] Atenolol TAB* [Tenormin TAB* 25 MG] 25 mg PO DAILY 02/17/19 [History Confirmed 02/17/19] Belladonna Extract 1 tab PO DAILY 02/17/19 [History Confirmed 02/17/19] Cyanocobalamin TAB* [Vitamin B12 TAB*] 1,000 mcg PO DAILY 02/17/19 [History Confirmed 02/17/19] Glucosamine Sulfate 500 mg PO DAILY 02/17/19 [History Confirmed 02/17/19] Guaifenesin/Pseudoephedrne HCl [Mucinex D ER 600-60 mg Tablet] 1 each PO DAILY 02/17/19 [History Confirmed 02/17/19] Magnesium Oxide [Magnesium] 400 mg PO DAILY 02/17/19 [History Confirmed 02/17/19 ] Multivitamins/Minerals TAB* [Thera M Plus TAB*] 1 tab PO DAILY 02/17/19 [ History Confirmed 02/17/19] Ondansetron ODT TAB* [Zofran 4 MG Odt TAB*] 4 mg PO Q6H PRN 02/17/19 [History Confirmed 02/17/19] Pseudoephedrine HCl 1 tab PO DAILY 02/17/19 [History Confirmed 02/17/19] PMH/Surg Hx/FS Hx/Imm Hx Cardiovascular History: Hypertension Respiratory History: COPD, Asthma - Surgical History Surgical History: Yes Surgery Procedure, Year, and Place: 1977- LEFT SALPINGO OOPHORECTOMY;. BILATERAL CATARACTS ; - Family History Known Family History: Positive: Hypertension, Other - Cancer - Social History Lives: With Family Alcohol Use: Occasionally Alcohol Amount: 2 DRINKS DAILY Substance Use Type: Marijuana Substance Use Comment - Amount & Last Used: daily Smoking Status (MU): Heavy Every Day Tobacco Smoker Amount Used/How Often: 1 PPD Have You Smoked in the Last Year: Yes Review of Systems All Other Systems Reviewed And Are Negative: No Constitutional: Positive: Negative Skin: Positive: Negative Respiratory: Positive: Negative Cardiovascular: Positive: Negative Musculoskeletal: Positive: Other: - Right shoulder injury Neurological: Positive: Negative Psychological: Positive: Negative Physical Exam - Summary Physical Exam Summary: GENERAL: NAD. WDWN. No pain distress. SKIN: No rashes, sores, or open wounds. HEENT: Head: AT/NC Eyes: PERRLA. EOM intact. NECK: Supple. Nontender. CHEST: CTAB. No r/r/w. No accessory muscle use. Breathing comfortably and in no distress. CV: RRR. Pulses intact. Brisk cap refill. MSK: RIGHT SHOULDER: Unable to move due to pain. TTP about proximal humerus. FROM at right elbow. NEURO: AAOx3. Sensations intact C3-T1 b/l. PSYCH: Age appropriate behavior. Triage Information Reviewed: Yes Vital Signs: Initial Vital Signs Temp 98.4 F 02/17/19 08:18 Pulse 94 02/17/19 08:18 Resp 16 02/17/19 08:18 BP 135/86 02/17/19 08:18 Pulse Ox 99 02/17/19 08:18 Vital Signs Reviewed: Yes Diagnostics - Radiology Shoulder XR Radiology Interpretation Completed By: Radiologist Summary of Radiographic Findings: IMPRESSION: COMMINUTED SLIGHTLY DISPLACED FRACTURE OF THE GREATER TROCHANTER OF THE HUMERUS. Shoulder Course/Dx - Course Course Of Treatment: XR as above. Pt placed in a shoulder immobilzer and advised to use this as much as possible Refer to Ortho for f/u next week Continue tylenol/motrin as directed prn pain - Differential Dx/Diagnosis Provider Diagnosis: Fracture of greater tuberosity of right humerus Discharge ED - Sign-Out/Discharge Documenting (check all that apply): Patient Departure All imaging exams completed and their final reports reviewed: Yes - Discharge Plan Condition: Stable Disposition: HOME Patient Education Materials: Proximal Humerus Fracture (ED) Referrals: Larry Duran MD [Primary Care Provider] - Servando Guerrero MD [Medical Doctor] - As Soon As Possible Additional Instructions: If you develop a fever, shortness of breath, chest pain, new or worsening symptoms - please call your PCP or go to the ED immediately. 1) Rest and apply ice to your shoulder intermittently throughout the day to decrease pain 2) Continue taking motrin as directed as needed for pain 3) Use the shoulder immobilizer as much as possible until your see Orthopedics 4) Please call Orthopedics at the number below to schedule an appointment for follow up next week - Billing Disposition and Condition Condition: STABLE Disposition: Home
== END 2019-02-17 09:33 | disposition home or self-care (01) ==
LOC: UCEAST 08:11
DX: S42.251A Displaced fracture of greater tuberosity of right humerus, initial encounter for closed fracture (principal); I10 Essential (primary) hypertension; J44.9 Chronic obstructive pulmonary disease, unspecified; J45.909 Unspecified asthma, uncomplicated; F17.210 Nicotine dependence, cigarettes, uncomplicated; Z88.0 Allergy status to penicillin; Z88.1 Allergy status to other antibiotic agents; Z91.09 Other allergy status, other than to drugs and biological substances; Z88.8 Allergy status to other drugs, medicaments and biological substances; Z79.82 Long term (current) use of aspirin; Z79.899 Other long term (current) drug therapy; W00.0XXA Fall on same level due to ice and snow, initial encounter; Y92.9 Unspecified place or not applicable
CPT/HCPCS: 99213; G0463